=== PATIENT | male | born 1965 | race Caucasian/White ===

== ENCOUNTER 2017-10-23 11:20 | Inpatient (IN) | payer MEDICAID ==
[~2017-10-23] VITALS: Ht 172.7 cm; Wt 93.8 kg
[~2017-10-23 11:20] MED LIST: INSU300I SQ; LISI-170 PO; NORT10CA PO; PREG150C PO
[2017-10-23] MEDS ORDERED: SODIUM CHLORIDE 0.9% 1,000 ML IV ONE (11:41)
[2017-10-23 11:55] LABS: BASOPHILS # (AUTO) 0.06 x10^3/uL (0-0.1); BASOPHILS % (AUTO) 1 % (0-1); EOSINOPHILS # (AUTO) 0.22 x10^3/uL (0-0.4); EOSINOPHILS % (AUTO) 3 % (1-7); LYMPHOCYTES # (AUTO) 1.68 x10^3/uL (1-3.4); LYMPHOCYTES % (AUTO) 21 % (22-44); MD NO; MEAN CORPUSCULAR HEMOGLOBIN 30.9 pg (27.5-34.5); MEAN CORPUSCULAR HGB CONC 34.5 g/dL (33.2-36.2); MEAN CORPUSCULAR VOLUME 89.6 fL (81-97); MEAN PLATELET VOLUME 9.5 fL (7.4-10.4); MONOCYTES # (AUTO) 0.43 x10^3/uL (0.2-0.8); MONOCYTES % (AUTO) 5 % (2-9); NEUTROPHILS # (AUTO) 5.51 x10^3/uL (1.8-6.8); NEUTROPHILS % (AUTO) 70 % (42-75); PLATELET COUNT 244 x10^3/uL (130-400); RED BLOOD COUNT 4.49 x10^6/uL (4.38-5.82); RED CELL DISTRIBUTION WIDTH 13.5 % (9.4-14.8)
[2017-10-23] MEDS ORDERED: SODIUM CHLORIDE FLUSH 10ML SYR IVF ONE (12:00)
[2017-10-23] MEDS ORDERED: SODIUM CHLORIDE 0.9% 1,000ML IVBOLUS ONE ×3 (12:00→17:00)
[2017-10-23 12:04] LABS: INTERNATIONAL NORMALIZED RATIO 0.96 (0.93-1.1)
[2017-10-23 12:08] LABS: ALANINE AMINOTRANSFERASE 38 U/L (12-78); ALBUMIN 3.3 g/dL (3.4-5.0); ANION GAP 10 mmol/L (5-15); CALCIUM 7.8 mg/dL (8.5-10.1); CHLORIDE 98 mmol/L (98-107); CREATININE 5.79 mg/dL (0.7-1.3)
[2017-10-23 12:12] LABS: ALKALINE PHOSPHATASE 88 U/L (45-117); BILIRUBIN,TOTAL 0.3 mg/dL (0.2-1.0); TOTAL PROTEIN 6.8 g/dL (6.4-8.2); TROPONIN I < 0.015 ng/mL (0.000-0.045)
[2017-10-23 12:12] LABS: MICROSCOPIC AUTO
[2017-10-23 12:15] LABS: CULTURE INDICATED? NO
[2017-10-23 12:40] LABS: ACETONE, SERUM Negative (Negative)
[2017-10-23] MEDS ORDERED: ATOR40TA PO (12:47)
[2017-10-23] MEDS ORDERED: INSU100I32 SQ (12:47)
[2017-10-23] MEDS ORDERED: METO25TA35 PO (12:47)
[2017-10-23] MEDS ORDERED: CITA20TA9 PO (12:47)
[2017-10-23] MEDS ORDERED: ASPI81TA50 PO (12:47)
[2017-10-23] MEDS ORDERED: CYCL-259 PO (12:47)
[2017-10-23] MEDS ORDERED: LISI-170 PO (12:47)
[2017-10-23] MEDS ORDERED: PREG150C PO ×2 (12:47)
[2017-10-23] MEDS ORDERED: HYDR12.58 PO (12:47)
[2017-10-23] MEDS ORDERED: INSU100I40 SQ (12:47)
[2017-10-23] MEDS ORDERED: CLON-364 PO (12:47)
[2017-10-23] MEDS ORDERED: CEFTRIAXONE PMX 1GM/50ML 50 ML IV ONE (14:00)
[2017-10-23] MEDS ORDERED: HEPARIN 5,000 UNITS/ML, 1ML IV ONE (15:00)
[2017-10-23] MEDS ORDERED: HEPARIN 5,000 UNITS/ML, 1ML IV PRN (15:00)
[2017-10-23] MEDS ORDERED: HEPARIN 25,000 UNITS/500ML PMX 500 ML IV PRN (15:00)
[2017-10-23 17:49] LABS: CHLORIDE,URINE RANDOM 12 mmol/L; POTASSIUM,URINE RANDOM 67 mmol/L; SODIUM,URINE RANDOM 21 mmol/L
[2017-10-23] MEDS: INSULIN LISPRO 100 UNITS/ML, PEN SQ-INSULIN SCH ×2 (18:19→21:13)
[2017-10-23 19:02] LABS: OSMOLALITY,URINE 320 mOsm/kg (500-850)
[2017-10-23] MEDS ORDERED: INSULIN DEGLUDEC 60 UNIT SQ SCH (21:00)
[2017-10-23] MEDS ORDERED: FAMOTIDINE 20 MG/2 ML IVPush SCH (21:00)
[2017-10-23] MEDS: CITALOPRAM 20 MG TABLET PO SCH (21:12)
[2017-10-23] MEDS: SODIUM CHLORIDE 0.9% 1,000 ML IV SCH (21:12)
[2017-10-23] MEDS: FAMOTIDINE 20 MG/2 ML IVPush SCH (21:12)
[2017-10-23] MEDS: PREGABALIN 150 MG CAPSULE PO SCH (21:12)
[2017-10-23] MEDS: ATORVASTATIN 40 MG TABLET PO SCH (21:12)
[2017-10-23] MEDS ORDERED: INSULIN GLARGINE 100 UNITS/ML, PEN SQ-INSULIN SCH (21:39)
[2017-10-24] MEDS: SODIUM CHLORIDE 0.9% 1,000 ML IV SCH ×2 (04:26→16:02)
[2017-10-24 04:44] LABS: BASOPHILS # (AUTO) 0.06 x10^3/uL (0-0.1); BASOPHILS % (AUTO) 1 % (0-1); EOSINOPHILS # (AUTO) 0.37 x10^3/uL (0-0.4); EOSINOPHILS % (AUTO) 5 % (1-7); LYMPHOCYTES # (AUTO) 2.25 x10^3/uL (1-3.4); LYMPHOCYTES % (AUTO) 28 % (22-44); MD NO; MEAN CORPUSCULAR HEMOGLOBIN 30.5 pg (27.5-34.5); MEAN CORPUSCULAR HGB CONC 34.1 g/dL (33.2-36.2); MEAN CORPUSCULAR VOLUME 89.5 fL (81-97); MEAN PLATELET VOLUME 9.3 fL (7.4-10.4); MONOCYTES # (AUTO) 0.71 x10^3/uL (0.2-0.8); MONOCYTES % (AUTO) 9 % (2-9); NEUTROPHILS # (AUTO) 4.65 x10^3/uL (1.8-6.8); NEUTROPHILS % (AUTO) 58 % (42-75); PLATELET COUNT 191 x10^3/uL (130-400); RED BLOOD COUNT 4.11 x10^6/uL (4.38-5.82); RED CELL DISTRIBUTION WIDTH 13.5 % (9.4-14.8)
[2017-10-24 04:54] LABS: ALBUMIN 2.6 g/dL (3.4-5.0); ANION GAP 6 mmol/L (5-15); CALCIUM 6.8 mg/dL (8.5-10.1); CHLORIDE 108 mmol/L (98-107)
[2017-10-24 04:57] LABS: ALANINE AMINOTRANSFERASE 29 U/L (12-78); ALKALINE PHOSPHATASE 73 U/L (45-117); BILIRUBIN,TOTAL 0.3 mg/dL (0.2-1.0); TOTAL PROTEIN 5.7 g/dL (6.4-8.2)
[2017-10-24] MEDS: AZITHROMYCIN 500 MG in SODIUM CHLORIDE 0.9% 250 ML IV SCH (08:08)
[2017-10-24] MEDS: INSULIN LISPRO 100 UNITS/ML, PEN SQ-INSULIN SCH ×4 (08:09→22:05)
[2017-10-24] MEDS: INSULIN ASPART SQ SCH (08:27)
[2017-10-24] MEDS: [UNRECOGNIZED DRUG - OTHER] SQ SCH (08:27)
[2017-10-24] MEDS ORDERED: DEXTROSE 4 GM TAB.CHEW PO PRN (09:00)
[2017-10-24] MEDS ORDERED: GLUCAGON 1 MG IM PRN (09:00)
[2017-10-24] MEDS ORDERED: DEXTROSE 50%, 50ML SYRINGE IVPush PRN (09:00)
[2017-10-24] MEDS ORDERED: HYDROcodone/APAP 5/325 TABLET PO PRN (09:30)
[2017-10-24] MEDS: PREGABALIN 150 MG CAPSULE PO SCH ×2 (09:34→22:04)
[2017-10-24] MEDS: SODIUM CHLORIDE FLUSH 10ML SYR IVF SCH ×2 (09:34→22:05)
[2017-10-24] MEDS: CEFTRIAXONE 1,000 MG in SODIUM CHLORIDE 0.9% 50 ML IV SCH (09:44)
[2017-10-24] MEDS: HEPARIN 5,000 UNITS/ML, 1ML SQ SCH ×2 (11:19→18:42)
[2017-10-24 12:30] VITALS: BP_SYST 146; BP_SYST 164; BP_DIAS 80; BP_DIAS 86
[2017-10-24 19:44] VITALS: BP 153/70
[2017-10-24] MEDS: ATORVASTATIN 40 MG TABLET PO SCH (22:04)
[2017-10-24] MEDS: FAMOTIDINE 20 MG/2 ML IVPush SCH (22:04)
[2017-10-24] MEDS: CITALOPRAM 20 MG TABLET PO SCH (22:04)
[2017-10-24] MEDS ORDERED: ACETAMINOPHEN 325 MG TABLET PO PRN (22:30)
[2017-10-25] MEDS ORDERED: ONDANSETRON 2MG/ML, 2ML IVPush PRN (02:30)
[2017-10-25 03:17] VITALS: BP 144/70
[2017-10-25 05:16] LABS: ANION GAP 7 mmol/L (5-15); CALCIUM 8.2 mg/dL (8.5-10.1); CHLORIDE 114 mmol/L (98-107); CREATININE 1.12 mg/dL (0.7-1.3)
[2017-10-25] MEDS: HEPARIN 5,000 UNITS/ML, 1ML SQ SCH (05:20)
[2017-10-25] MEDS: SODIUM CHLORIDE 0.9% 1,000 ML IV SCH (05:20)
[2017-10-25 06:45] VITALS: BP 161/80
[2017-10-25] MEDS: INSULIN LISPRO 100 UNITS/ML, PEN SQ-INSULIN SCH ×2 (07:00→11:00)
[2017-10-25] MEDS: INSULIN ASPART SQ SCH (08:35)
[2017-10-25] MEDS: [UNRECOGNIZED DRUG - OTHER] SQ SCH (08:35)
[2017-10-25] MEDS: CEFTRIAXONE 1,000 MG in SODIUM CHLORIDE 0.9% 50 ML IV SCH (08:36)
[2017-10-25] MEDS: PREGABALIN 150 MG CAPSULE PO SCH (08:36)
[2017-10-25] MEDS: SODIUM CHLORIDE FLUSH 10ML SYR IVF SCH (08:36)
[2017-10-25] MEDS: AZITHROMYCIN 500 MG in SODIUM CHLORIDE 0.9% 250 ML IV SCH (09:22)
[2017-10-25] MEDS ORDERED: AZIT250T89 PO (11:30)
[2017-10-25] MEDS ORDERED: FAMOTIDINE 20 MG/2 ML IVPush SCH (21:00)
== END 2017-10-25 13:22 | disposition home or self-care (01) | DRG 682 ==
LOC: ED 13:13 → EDIP 13:49 → CCU 14:43 → 4WST 10-24 11:39 → DCLOUNGE 10-25 12:50
PROVIDERS: ADMIT Family Medicine; ATTEND Family Medicine
PROC: 02HV33Z Insertion of Infusion Device into Superior Vena Cava, Percutaneous Approach (ICD-10-PCS; principal; 2017-10-23)
PROC: B548ZZA Ultrasonography of Superior Vena Cava, Guidance (ICD-10-PCS; 2017-10-23)
DX: N17.9 Acute kidney failure, unspecified (principal); J96.01 Acute respiratory failure with hypoxia; J18.1 Lobar pneumonia, unspecified organism; E87.1 Hypo-osmolality and hyponatremia; E78.5 Hyperlipidemia, unspecified; E83.51 Hypocalcemia; E86.0 Dehydration; E87.5 Hyperkalemia; G89.29 Other chronic pain; M54.9 Dorsalgia, unspecified; M54.2 Cervicalgia; I11.0 Hypertensive heart disease with heart failure; I50.9 Heart failure, unspecified; I95.0 Idiopathic hypotension; Z79.4 Long term (current) use of insulin; Z86.73 Personal history of transient ischemic attack (TIA), and cerebral infarction without residual deficits; E10.40 Type 1 diabetes mellitus with diabetic neuropathy, unspecified
CPT/HCPCS: 36415; 36556; 99291; S0028; 70450; 71045; 76770; 80048; 80053; 81001; 82010; 82306; 82436; 82550; 82962; 83605; 83735; 83880; 83930; 83935; 83970; 84100; 84133; 84300; 84484; 85025; 85520; 85610; 85730; 87040; 87081; 93005; 93306; J0456; J0696; J1644; J2405; J1815; J7030; J7050

== ENCOUNTER → 2018-02-08 | Outpatient (CLI) | payer MEDICAID ==
[~2018-02-08] MED LIST changes: +ASPI81TA50 PO; +ATOR40TA PO; +AZIT250T89 PO; +CITA20TA9 PO; +CLON0.5T11 PO; +CYCL-259 PO; +HYDR12.58 PO; +INSU100I32 SQ; +INSU100I40 SQ; +METO25TA35 PO
== END | disposition home or self-care (01) ==
LOC: CFH 09:38
PROVIDERS: ATTEND Nurse Practitioner
DX: R05 Cough (principal)
CPT/HCPCS: 71250

== ENCOUNTER 2019-03-28 11:05 | Emergency (ER) | payer MEDICAID ==
[~2019-03-28] VITALS: Ht 172.7 cm; Wt 82.3 kg
[~2019-03-28 11:05] MED LIST changes: -HYDR12.58 PO; +HYDROCHLOROTH12.5 MG PO
[2019-03-28] MEDS ORDERED: SODIUM CHLORIDE FLUSH 10ML SYR IVF ONE (11:30)
[2019-03-28] MEDS ORDERED: SODIUM CHLORIDE 0.9% 1,000ML IVBOLUS ONE (11:30)
[2019-03-28 11:54] LABS: PH, VENOUS 7.412 pH (7.320-7.420)
[2019-03-28 11:58] LABS: BASOPHILS # (AUTO) 0.03 x10^3/uL (0-0.1); BASOPHILS % (AUTO) 0 % (0-1); EOSINOPHILS # (AUTO) 0.09 x10^3/uL (0-0.4); EOSINOPHILS % (AUTO) 1 % (1-7); LYMPHOCYTES # (AUTO) 1.16 x10^3/uL (1-3.4); LYMPHOCYTES % (AUTO) 12 % (22-44); MD NO; MEAN CORPUSCULAR HEMOGLOBIN 30.6 pg (27.5-34.5); MEAN CORPUSCULAR VOLUME 89.8 fL (81-97); MEAN PLATELET VOLUME 9.1 fL (7.4-10.4); MONOCYTES % (AUTO) 3 % (2-9); NEUTROPHILS # (AUTO) 8.42 x10^3/uL (1.8-6.8); NEUTROPHILS % (AUTO) 84 % (42-75); PLATELET COUNT 268 x10^3/uL (130-400); RED BLOOD COUNT 5.38 x10^6/uL (4.38-5.82)
[2019-03-28 12:00] LABS: FIO2 ROOM AIR %
--- NOTE | 2019-03-28 12:08 | NUR ---
PT PRESENTS TO ED WITH C/O N/V SINCE LAST NIGHT, SEEN BY PCP THIS AM WHO SUSPECTED DKA. PT PLACED ON ALL MONITORS, IV PLACED , IVF INFUSING. PT A&O, RESPS EVEN AND UNLABORED. NS INFUSING AT THIS TIME. PT REQ NORCO 10 FOR CHRONIC NECK PAIN, MD TRUONG INFORMED.
[2019-03-28 12:11] LABS: ANION GAP 6 mmol/L (5-15); CALCIUM 9.5 mg/dL (8.5-10.1); CHLORIDE 104 mmol/L (98-107)
[2019-03-28] MEDS ORDERED: HYDROcodone/APAP 10/325 MG TABLET ONE ×2 (12:11→12:41)
[2019-03-28 12:14] LABS: CREATININE 1.08 mg/dL (0.7-1.3)
[2019-03-28 12:15] LABS: ALANINE AMINOTRANSFERASE 40 U/L (12-78); ALKALINE PHOSPHATASE 93 U/L (45-117); BILIRUBIN,TOTAL 0.8 mg/dL (0.2-1.0); TOTAL PROTEIN 8.4 g/dL (6.4-8.2)
--- NOTE | 2019-03-28 12:16 | NUR ---
report to break BART Arciniega.
[2019-03-28] MEDS ORDERED: HYDROcodone/APAP 10/325 MG TABLET PO ONE ×2 (12:30→13:00)
[2019-03-28 12:40] LABS: ACETONE, SERUM Trace (10mg/dL) mg/dL (Negative)
[2019-03-28] MEDS ORDERED: INSULIN SINGLE DOSE, ER ONE (12:48)
[2019-03-28 12:53] LABS: MICROSCOPIC NOT IND
[2019-03-28] MEDS ORDERED: INSULIN REGULAR 100 UNITS/ML, 3ML VIAL SQ-INSULIN ONE (13:00)
[2019-03-28 13:01] LABS: CULTURE INDICATED? NO
--- NOTE | 2019-03-28 13:06 | NUR ---
report received from brittany Arciniega.
--- NOTE | 2019-03-28 13:55 | NUR ---
pt resting on gurney, pt a&o, resps even and unlabored. 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 pt reports neck pain resolved s/p norcos.
--- NOTE | 2019-03-28 14:56 | NUR ---
report to BART Juárez who is to assume care.
--- NOTE | 2019-03-28 15:00 | NUR ---
REPORT WAS RECEIVED, PT.'S VITALS MONITORED. BAZ=[id number]. PT. STATES HE FEELS BETTER.
--- NOTE | 2019-03-28 15:56 | NUR ---
PT. WAS GIVEN DISCHARGE INSTRUCTIONS WITH UNDERSTANDING VERBALIZED ALONG WITH WILLINGNESS TO COMPLY. PT.'S IV WAS DCD', CATH TIP INTACT. PRESSURE HELD WITH HEMOSTASIS ACHIEVED. PT. WAS AMBULATORY WITH A STEADY GAIT TO DISCHARGE.
[2019-03-28 16:00] VITALS: BP 138/83
--- NOTE | 2019-03-28 16:02 | NUR ---
BGL AT DISCHARGE PER PT'S OWN [id number].
== END 2019-03-28 16:04 | disposition home or self-care (01) ==
LOC: ED 15:13
DX: E10.65 Type 1 diabetes mellitus with hyperglycemia (principal); R11.2 Nausea with vomiting, unspecified; I10 Essential (primary) hypertension; Z86.73 Personal history of transient ischemic attack (TIA), and cerebral infarction without residual deficits
CPT/HCPCS: 36415; 80053; 81003; 82010; 82803; 82962; 83690; 85025; 93005; 96360; 96372; 99284; J1815; J7030